=== PATIENT | female | born 1980 | race Caucasian/White ===

== ENCOUNTER 2017-08-01 12:41 | Emergency (ER) | payer SELFPAY ==
[~2017-08-01] VITALS: Ht 165.1 cm; Wt 60.3 kg
[2017-08-01 12:49] VITALS: BP 99/55
[2017-08-01] MEDS ORDERED: VENTOLIN HFA18 GM IH (17:26)
[2017-08-01] MEDS ORDERED: TAMIFLU75 MG PO (17:26)
== END 2017-08-01 17:37 | disposition left against medical advice (07) ==
LOC: EME 12:41
DX: O99.89 Other specified diseases and conditions complicating pregnancy, childbirth and the puerperium (principal); J10.1 Influenza due to other identified influenza virus with other respiratory manifestations; R51 Headache; O09.511 Supervision of elderly primigravida, first trimester; O99.331 Smoking (tobacco) complicating pregnancy, first trimester; F17.200 Nicotine dependence, unspecified, uncomplicated
CPT/HCPCS: 71046; 87502; 99281; 99284